=== PATIENT | female | born 1980 | race Two or more races ===

== ENCOUNTER 2019-07-02 05:13 | Day surgery (SDC) | payer OTHER ==
[2019-06-30 10:10] VITALS: BMI 36.9
--- NOTE | 2019-07-02 14:04 | HP ---
History & Physical Update - Physical Physical: No Change - Assessment Assessment: No Change - Plan Plan: No Change
[2019-07-02] MEDS ORDERED: MIDAZOLAM HCL 2 MG/2 ML SINGLE DOSE VIAL ONE (14:14)
[2019-07-02] MEDS ORDERED: PROPOFOL 20 ML ONE (14:18)
[2019-07-02] MEDS ORDERED: ONDANSETRON 4 MG/2 ML VIAL IVPUSH PRN (14:51)
[2019-07-02] MEDS ORDERED: PROMETHAZINE HCL 25 MG/1 ML VIAL IVPUSH PRN (14:51)
[2019-07-02] MEDS ORDERED: oxyCODONE HCL 5 MG TABLET PO PRN (14:51)
[2019-07-02] MEDS ORDERED: LACTATED RINGERS SOLUTION 1,000 ML IV SCH (15:00)
--- NOTE | 2019-07-02 15:14 | OP ---
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
[2019-07-02 16:04] VITALS: TEMP 98
[2019-07-02 16:34] VITALS: BP 123/79; PULSE 66
--- NOTE | 2019-07-03 06:49 | OP ---
DATE OF OPERATION: 07/02/2019 PREOPERATIVE DIAGNOSIS: A 38-year-old obese female with abnormal uterine bleeding. Endometrial biopsy in the office showed diffuse, complex endometrial hyperplasia without atypia. POSTOPERATIVE DIAGNOSIS: A 38-year-old obese female with abnormal uterine bleeding. Endometrial biopsy in the office showed diffuse, complex endometrial hyperplasia without atypia. PROCEDURE: Diagnostic hysteroscopy and dilation and curettage. SURGEON: Doug Bonilla MD GLASS FURNACE OPERATOR: None. ANESTHESIA: MAC. ESTIMATED BLOOD LOSS FOR THE PROCEDURE: Minimal. INTRAVENOUS FLUIDS: Per anesthesia. COMPLICATIONS: None. FINDINGS: Normal external genitalia and vaginal mucosa. Mild rectocele noted, asymptomatic. Cervix was slightly stenotic and short. Normal endocervical canal. Endometrial cavity was lush with no focal abnormalities. Bilateral tubal ostia patent. DESCRIPTION OF PROCEDURE: Patient was taken to the operating room where anesthesia was found to be adequate. She was then prepped and draped in a normal sterile fashion. Then a retractor was utilized to visualize the cervix, which anterior lip was grasped with a Gusman tenaculum. Cervix was progressively dilated with Hegar dilators to accommodate the hysteroscope. The hysteroscope was advanced to the fundus without difficulty. Findings as previously mentioned. The hysteroscope was removed, and systematic curettage of the endometrial cavity took place until a gritty texture was encountered throughout the cavity. Specimens were sent to Pathology. The hysteroscope was once again introduced to the fundus without difficulty. Inspection following dilation and curettage revealed completion of procedure. The entire endometrial lining had been removed. No active bleeding noted. The hysteroscope was removed, and all instruments were retrieved from the vagina. No active bleeding from the cervical os at the tenaculum site. Instrument count was reported as correct x2 by the staff. Patient in stable condition going to the recovery room. DOUG BONILLA MD [id number] MTDD
--- NOTE | 2019-07-08 10:41 | PATH ---
Surgical Pathology Report Patient Name: BEATRIZ CELESTE [facility]. Rec. #: [id number] /Age/Gender: 1980 (Age: 38) / F Account: [id number] Location: [facility] Taken: 07/02/2019 Received: 07/05/2019 Reported: 07/08/2019 Physicians: Graham Jeffrey MD Specimen(s) Received ENDOMETRIAL CURETTINGS Clinical History Abnormal uterine bleeding, endometrial thickening Final Diagnosis ENDOMETRIAL CURETTINGS: COMPLEX HYPERPLASIA WITH FOCAL ATYPIA. Intradepartmental case reviewed with concordance for diagnosis. This case was discussed with Dr. Jeffrey on July 08, 2019. Electronically Signed Jessenia Singh M.D. Gross Description Received in formalin, labeled "endometrial curettings" are multiple dark brown portions of soft tissue measuring 1.2 x 1.2 x 0.1 cm in aggregate. The specimens are submitted in toto in 1 cassette. MARLENI/07/05/2019 chele/07/05/2019
== END 2019-07-02 16:50 | disposition home or self-care (01) ==
LOC: JASU-SURG 05:13
PROVIDERS: ATTEND Student in an Organized Health Care Education/Training Program
PROC: 0UDB7ZX Extraction of Endometrium, Via Natural or Artificial Opening, Diagnostic (ICD-10-PCS; principal; 2019-07-02 13:30)
PROC: 0UJD8ZZ Inspection of Uterus and Cervix, Via Natural or Artificial Opening Endoscopic (ICD-10-PCS; 2019-07-02 13:30)
DX: N93.9 Abnormal uterine and vaginal bleeding, unspecified (principal); E66.9 Obesity, unspecified
CPT/HCPCS: 36415; 84703; 86850; 86900; 86901; 88305-TC; 94760